=== PATIENT | female | born 2000 | race Caucasian/White ===

== ENCOUNTER 2024-02-17 15:08 | Emergency (ER) | payer SELFPAY ==
[~2024-02-17] VITALS: Ht 152.4 cm; Wt 60.0 kg
[2024-02-17 15:11] VITALS: BP 113/76; PULSE 94; RESP 15; TEMP 99; O2SAT 99
[2024-02-17] MEDS ORDERED: TOPUD PO (15:41)
[2024-02-17] MEDS ORDERED: ONDA-239 PO (15:41)
[2024-02-17] MEDS ORDERED: LOPE2TAB26 MT (15:41)
== END 2024-02-17 16:06 | disposition home or self-care (01) ==
LOC: ER 15:08
DX: R11.2 Nausea with vomiting, unspecified (principal); R19.7 Diarrhea, unspecified
CPT/HCPCS: 99283; Z7610